=== PATIENT | male | born 1985 | race African-American/Black ===

== ENCOUNTER 2017-11-01 11:39 | Emergency (ER) | payer MEDICAID, OTHER ==
[~2017-11-01] VITALS: Ht 167.6 cm; Wt 113.4 kg
[2017-11-01 12:06] VITALS: BP 127/77
[2017-11-01] MEDS ORDERED: HYDROcodone-ACET 10/325MG TAB PO ONE (12:30)
== END 2017-11-01 13:12 | disposition home or self-care (01) ==
LOC: ER 11:39
DX: J20.9 Acute bronchitis, unspecified (principal); J02.9 Acute pharyngitis, unspecified; Z83.3 Family history of diabetes mellitus

== ENCOUNTER 2018-12-14 00:45 | Emergency (ER) | payer MEDICAID ==
[~2018-12-14] VITALS: Ht 167.6 cm; Wt 114.5 kg
[2018-12-14 01:34] LABS: Basophils # (auto) 0.1 uL; Basophils % (auto) 0.7 % (0.0-2.0); Eosinophils # (auto) 0.1 uL; Eosinophils % (auto) 0.4 % (0.0-7.0); Hemoglobin 15.4 g/dL (13.5-17.5); Lymphocytes # (auto) 1.9 uL; Lymphocytes % (auto) 13.4 % (10.0-50.0); Mean Corpuscular Hemoglobin 30.1 pg (28.0-32.0); Mean Corpuscular Hgb Conc. 33.5 g/dL (32.0-36.0); Monocytes # (auto) 1.4 uL; Monocytes % (auto) 10.1 % (0.0-12.0); Neutrophils # (auto) 10.5 uL; Neutrophils % (auto) 75.4 % (37.0-80.0); Nucleated Red Blood Cells % 0.1 %; Platelet Count (auto) 268 10^3/uL (140-450); Red Blood Cells 5.11 10^6/uL (4.5-5.90); Red Cell Distribution Width 13.3 % (11.8-14.3)
[2018-12-14 01:45] LABS: Alanine Aminotransferase 45 U/L (16-61); Albumin 3.7 g/dL (3.4-5.0); Anion Gap 9 (5-15); Aspartate Aminotransferase 20 U/L (15-37); BUN/Creatinine Ratio 8.7; Blood Urea Nitrogen 11 mg/dL (7-18); Calcium 8.5 mg/dL (8.5-10.1); Carbon Dioxide 23 mmol/L (21-32); Chloride 104 mmol/L (98-107); GFR African American > 60 mL/min; GFR Non-African American > 60 mL/min; Glucose 95 mg/dL (74-106); Lipase 72 U/L (73-393); Sodium 136 mmol/L (136-145)
[2018-12-14 01:47] LABS: Alkaline Phosphatase 94 U/L (45-117); Bilirubin, Total 1.4 mg/dL (0.2-1.0); Total Protein 7.8 g/dL (6.4-8.2)
[2018-12-14 04:43] LABS: Urine Bacteria NONE SEEN /hpf (None Seen); Urine Blood TRACE /uL (Negative); Urine Mucus FEW (None Seen); Urine Specific Gravity 1.036 (1.001-1.035); Urine WBC 6 /hpf (0 - 3)
[2018-12-14 08:14] VITALS: BP 137/79
== END 2018-12-14 08:56 | disposition home or self-care (01) ==
LOC: ER 00:51
DX: J40 Bronchitis, not specified as acute or chronic (principal); R42 Dizziness and giddiness; R51 Headache
CPT/HCPCS: 36415; 71045; 74176; 80053; 81001; 83690; 85025

== ENCOUNTER 2022-09-04 08:17 | Emergency (ER) | payer MEDICARE, MEDICAID ==
[~2022-09-04] VITALS: Ht 167.6 cm; Wt 120.7 kg
[2022-09-04 09:27] VITALS: BP 148/109
[2022-09-04] MEDS ORDERED: KETOROLAC TROMETH 60MG/2ML VIAL IM ONE (09:45)
[2022-09-04] MEDS ORDERED: BACL10TA PO (10:21)
[2022-09-04] MEDS ORDERED: IBUP800T27 PO (10:21)
== END 2022-09-04 10:40 | disposition home or self-care (01) ==
LOC: ER 08:17
DX: M54.42 Lumbago with sciatica, left side (principal); I10 Essential (primary) hypertension
CPT/HCPCS: 72100; 96372; 99283; J1885